=== PATIENT | female | born 1945 | race Caucasian/White ===

== ENCOUNTER 2017-07-24 12:58 | Inpatient (IN) | payer MEDICARE, BC, MEDICAID, SELFPAY ==
[2017-07-24] VITALS (11 sets, daily range): BP systolic 141–181; BP diastolic 49–94; PULSE 54–76; RESP 16–20; TEMP 37.1–37.4; O2SAT 93–99; BMI 62.0; BMI 62.1; BMI 56.8
--- NOTE | 2017-07-24 13:13 | ED.RN ---
PT HAS SEVERE EDEMA TO BODY, ONLY PITTING EDEMA TO BILAT HANDS.
--- NOTE | 2017-07-24 13:35 | EKG12_ITS ---
Test Reason : SOB Blood Pressure : / mmHG Vent. Rate : 055 BPM Atrial Rate : 055 BPM P-R Int : 182 ms QRS Dur : 088 ms QT Int : 442 ms P-R-T Axes : 066 014 092 degrees QTc Int : 422 ms Sinus bradycardia Left ventricular hypertrophy with repolarization abnormality Abnormal ECG Confirmed by FERNANDO TORRES, SAI ([id number]), news editor RENATA LAROSE ([id number]) on 07/29/2017 2:01:52 PM Referred By: LIYAH Confirmed By:SAI KING MD
--- NOTE | 2017-07-24 13:35 | RAD_ITS ---
STUDY: X-RAY CHEST REASON FOR EXAM: Female, 72 years old. Shortness of breath. TECHNIQUE: Single AP portable view of the chest. COMPARISON: Comparison is made with prior study dated August 24, 2016. FINDINGS: EKG electrodes are seen. Findings suggestive of mild degree of vascular congestion and CHF. Stable linear atelectasis and/or scarring at the left lung base. There is no demonstrated pleural abnormality. There is mild cardiac enlargement. Normal mediastinum and aris. Normal visualized pulmonary arteries. Normal visualized aortic arch and descending thoracic aorta. Normal visualized thoracic spine. Normal visualized ribs, clavicles, and shoulders. There is no demonstrated abnormality of the visualized soft tissue structures of the upper abdomen. RAD/Chest 1 View (Portable) IMPRESSION: Findings in keeping with mild degree of CHF with left basilar atelectasis. Electronically Signed: Gamaliel Starkey MD at 14:40 EST Tel [phone], Service support ,
[2017-07-24 14:21] LABS: Absolute Lymphocyte Count 0.84 X10^3/ul (0.83-4.51); Absolute Neutrophil Count 5.6 X10^3/uL (2.0-7.7); Basophil# 0.01 X10^3/uL; Basophil% 0.1 % (0-1); Eosinophil# 0.22 X10^3/uL; Eosinophils% 3.2 % (0-5); Hematocrit 29.2 % (37-47); Hemoglobin 8.6 g/dl (12.0-15.0); Lymphocyte # 0.84 X10^3/ul (4.0); Mean Corp Hgb Conc 29.5 g/gl (32-36); Mean Corpuscular Hgb 29.3 pg (27.0-32.0); Mean Corpuscular Volume 99.3 fL (81-99); Mean Platelet Vol. 9.7 fl (6.2-12.0); Monocyte# 0.29 X10^3/uL; Monocyte% 4.2 % (0-10); Neutrophil # 5.61 X10^3/uL (2.7-7.7); Neutrophil % 80.4 % (47-70); POSITIVE COUNT NO; POSITIVE DIFFERENTIAL NO; POSITIVE MORPHOLOGY NO; Platelet Count 169 K/mm3 (150-450); RBC Distribution Width CV 15.1 % (11.6-14.6); RBC Distribution Width SD 54.9 fl (35.1-43.9); Red Blood Count 2.94 M/mm3 (4.2-5.4)
[2017-07-24 14:46] LABS: Anion Gap 4 (5-15); BUN 60 mg/dL (7-18); BUN/Creat Ratio 43.8 RATIO (10-20); Calcium,Total 8.7 mg/dL (8.5-10.1); Chloride 100 mmol/L (98-107); Creatinine, Serum 1.37 mg/dL (0.55-1.02); EST Glomerular Filtration Rate 40 mL/min (>60); Est Glom Filt Rate - Afr Amer 48 mL/min (>60); Estimated Creatinine Clearance 31.11 ml/min; Glucose 160 mg/dL (74-106); Potassium 4.6 mmol/L (3.5-5.1); Sodium Level 141 mmol/L (136-145)
[2017-07-24 14:55] LABS: BNP,B-Type NATRIURETIC PEPTIDE 79.8 pg/mL (0-100)
--- NOTE | 2017-07-24 16:15 | ED.DCSUM_ITS ---
- ER Visit Summary Date of Service: 07/24/17 Chief Complaint: Shortness of breath and swelling History of Present Illness: The patient is a 72 F sent in from [facility] with chronic shortness of breath, on home oxygen. She is noted increased swelling to her extremities. They have been trying to increase her Lasix but there is concern for worsening renal function. Patient does have chronic renal insufficiency and follows with Dr. Ingram. Physical Examination: Vital signs are unremarkable. Patient sitting upright in bed no acute distress. Head and neck examination is unremarkable. Heart is regular rate and rhythm. Lung sounds are diminished at the bases. Abdomen is soft, obese, nontender. Extremity examination reveals 3-4+ edema in the arms and legs bilaterally. No open wounds are noted. Test Results: EKG is sinus bradycardia at 55 bpm with no sign of acute ischemia. CBC was normal white count with hemoglobin of 8.6. It appears that her baseline is closer to 10. Chemistry studies reveal a BUN of 16 and creatinine 1.37. BNP is normal. Emergency Department Course and Treatment: At this time patient has failed oral Lasix. She will be given a dose of IV Lasix and admitted for further treatment. Treatment Plan: [] Disposition: Admit Impression: Anasarca This note was generated with [employer] dictation software. It may contain incorrect words, spelling, and punctuation that were not noted in review of the chart prior to signing ED Disposition - Plan for ED Patient: Chief Complaint: Shortness of Breath Referrals: Antonio Peterson [Primary Care Provider] -
--- NOTE | 2017-07-24 16:56 | PCM.HP.STD ---
Problem List (1) Left ventricular hypertrophy Status: Chronic (2) Pulmonary hypertension Status: Chronic (3) First degree AV block Status: Chronic (4) Asthma Status: Chronic (5) History of gastroesophageal reflux (GERD) Status: Chronic (6) Hyperlipidemia Status: Chronic (7) History of hypertension Status: Chronic (8) Diabetes mellitus, type 2 Status: Chronic (9) Morbid obesity Status: Chronic (10) Lymphedema of lower extremity Status: Chronic Qualifiers: (11) Depression Status: Chronic (12) Anemia Status: Chronic (13) Hypertension Status: Chronic Qualifiers: (14) Obstructive sleep apnea on CPAP Status: Chronic (15) Rheumatic fever Status: Chronic (16) Hiatal hernia Status: Chronic History of Present Illness Date of Admission: 07/24/17 Chief Complaint: Swelling of extremities The patient is a 72 year old F who presents from halfway facility due to increased swelling of upper and lower extremities. Patient states she has chronic shortness of breath with exertion and is not more short of breath than normal. She denies chest pain. She does not ambulate much at nursing facility and nursing staff uses [facility] to transfer her. Patient sees Dr. Ingram for chronic renal failure and Dr. Thompson for diastolic dysfunction, hypertension and chronic lower extremity edema. She has a history of lymphedema which is not thought to be related to her heart. Her most recent echo May 2012 showed an ejection fraction of 70%. Her past medical history includes pulmonary hypertension, asthma, GERD, hyperlipidemia, hypertension, type 2 diabetes mellitus, morbid obesity, chronic lymphedema of lower extremities, depression, chronic anemia, obstructive sleep apnea on CPAP, rheumatic fever, hiatal hernia, chronic hypoxic respiratory failure requiring 2 L continuous supplemental oxygen. Lasix regimen was attempted to be adjusted as outpatient, however patient did not notice improvement of swelling. Past Medical History Past Medical History (Chronic Problems): Chronic Problems (Last Reviewed 05/03/17 @ 11:59 by Naun Thompson MD) Left ventricular hypertrophy (Chronic) Pulmonary hypertension (Chronic) First degree AV block (Chronic) Asthma (Chronic) History of gastroesophageal reflux (GERD) (Chronic) Hyperlipidemia (Chronic) History of hypertension (Chronic) Diabetes mellitus, type 2 (Chronic) Morbid obesity (Chronic) Lymphedema of lower extremity (Chronic) Depression (Chronic) Anemia (Chronic) Hypertension (Chronic) Obstructive sleep apnea on CPAP (Chronic) Rheumatic fever (Chronic) Hiatal hernia (Chronic) Allergies azithromycin Allergy (Verified 05/03/17 11:35) Rash hydroxychloroquine sulfate [From Plaquenil] Allergy (Verified 05/03/17 11:35) Unknown Penicillins Allergy (Verified 05/03/17 11:35) Hives Home Medications: Ambulatory Orders Medication Instructions Recorded Losartan Potassium [Cozaar] 50 mg PO DAILY 02/16/13 Atorvastatin Calcium [Lipitor] 40 mg PO QHS 02/17/13 Albuterol IH (ProAir) [Proair Hfa] 2 puff INHALATION Q6H PRN PRN 08/09/13 Montelukast [Singulair] 10 mg PO DAILY 08/09/13 Docusate Sodium [Colace] 100 mg PO QHS 05/06/14 Duloxetine HCl 30 mg PO QHS 06/11/16 Fexofenadine HCl 180 mg PO DAILY 06/11/16 Insulin Aspart [Novolog Flexpen 34 units SC DINNER 06/11/16 ([facility])] Insulin Aspart [Novolog Flexpen 38 units SC LUNCH 06/11/16 ([facility])] Insulin Aspart [Novolog Flexpen] 30 units SC BREAKFAST 06/11/16 Lorazepam [Ativan] 1 mg PO QHS 06/11/16 Acetaminophen 650 mg PO Q4H PRN PRN 08/24/16 Aspirin [Aspirin, Baby] 81 mg PO DAILY 08/24/16 Esomeprazole Mag Trihydrate 20 mg PO BID 08/24/16 [Nexium] Lactobacillus Acidophilus 1 tab PO BID 08/24/16 [Acidophilus] Lorazepam [Ativan] 1 mg PO BID PRN PRN 08/24/16 cholecalciferol (vitamin D3) 2,000 2,000 unit PO DAILY cap 05/02/17 unit capsule fluticasone 500 mcg-salmeterol 50 1 inh INHALATION Q12H 05/02/17 mcg/dose blistr powdr for inhalation furosemide 80 mg tablet 80 mg PO BID tab 05/02/17 carvedilol 12.5 mg tablet 12.5 mg PO BID tab 05/03/17 ipratropium-albuterol 0.5 mg-3 3 ml INHALATION Q8H 05/03/17 mg(2.5 mg base)/3 mL nebulization soln Albuterol Aerosols [Ventolin 2.5 mg INHALATION BID 07/24/17 Aerosols] Ferrous Sulfate 325 mg PO BIDCM 07/24/17 Insulin Detemir [Levemir FlexPen] 75 units SC BID 07/24/17 Surgical History: hysterectomy, - - Bladder suspension, hernia repair Psychiatric History: No pertinent psych hx MAPPER History: No pertinent MAPPER history Lives: [facility] Smoking Status: Former smoker Alcohol: None Drugs: None - *Family History Maternal History Items: - - mother with cervical cancer, stomache cancer, breast cancer in distant relatives Paternal History Items: - - father and uncle had heart failure Sibling History Items: No pertinent history Review of Systems Constitutional: Reports: Weakness. Denies: Chills, Fever HEENT: Denies: Head Aches, Sinus Congestion, Sinus Drainage Cardiovascular: Reports: Edema. Denies: Chest Pain, Light Headedness, Palpitations, Syncope Respiratory: Reports: Shortness of breath upon exertion - Chronic. Denies: Cough, Shortness of breath at rest, Sputum production Gastrointestinal: Denies: Abdominal Pain, Constipation, Diarrhea, Nausea, Vomiting Genitourinary: Denies: Dysuria Musculoskeletal: Denies: Joint Pain, Joint Tenderness Skin: Denies: Rash, Wounds Neurological: Denies: Numbness, Tingling, Focal weakness Psychiatric: Denies: Anxiety, Depression, Homicidal Ideations, Suicidal Ideations Hematologic/ Lymphatic: Denies: Easy Bruising, Easy Bleeding VTE Information - Inpt Only VTE Present on Admission: No VTE Mechan Device Prophylaxis: None VTE Pharm Prophylaxis ordered?: Yes - Physical Exam General: Alert, Oriented x3, Cooperative, No apparent distress HEENT: Atraumatic, PERRLA, EOMI, Normocephalic Neck: Supple, No JVD, Negative Carotid Bruits Lungs: Clear to auscultation, Diminished Cardiovascular: Regular rate, Regular Rhythm, Normal S1, Normal S2, Murmur, - Abdomen: Bowel Sounds Present, Soft, Non Tender, Non-Distended, Obese Extremities: No clubbing, No cyanosis, Edema - +3 pitting edema bilateral upper and lower extremities. Skin: No rashes, No breakdown Musculoskeletal: No Tenderness to Palpation of Joints or Extremities Neurological: Cranial nerves II-XII grossly intact, Neuro grossly intact Psych/Mental Status: Normal Affect, Appropriate Vital Signs Temp Pulse Resp BP Pulse Ox 98.8 F 60 16 141/94 H 98 07/24/17 13:01 07/24/17 14:16 07/24/17 14:16 07/24/17 14:16 07/24/17 14:16 Assessment/Plan 1. Anasarca with underlying chronic lymphedema of lower extremities. Dr. Ingram consulted who recommends increasing Lasix. Begin IV Lasix 80 mg twice daily. Awais wraps bilateral lower extremities. Strict I&O. Daily weight. Obtain echo. Patient follows with Dr. Thompson who does not feel lower extremity swelling is cardiac related. PT/OT. Sodium and fluid restriction. 2. Chronic hypoxic respiratory failure-on continuous supplemental oxygen of 2 L nasal cannula. At baseline. Patient denies shortness of breath. Albuterol aerosols as needed for shortness of breath. 3. Pulmonary hypertension/obstructive sleep apnea-continue home CPAP. Patient is seen Dr. Guthrie in the past. Most recent sleep study was approximately 5 years ago. Recommend further outpatient follow-up. Repeat echocardiogram to assess pulmonary pressures. 4. Chronic kidney disease-creatinine appears to be at baseline. Monitor BMP. Dr. Ingram consulted. 5. Diastolic dysfunction-Her most recent echo May 2012 showed an ejection fraction of 70%. Repeat echocardiogram. 6. Chronic iron deficiency anemia-continue iron supplementation. Hemoglobin 8.6. Her hemoglobin has fluctuated in previous labs. Repeat iron studies/B12/Folate. 7. Hypertension-continue home regimen of losartan, carvedilol. Continue to monitor. 8. Hyperlipidemia-continue statin. 9. Type 2 diabetes [id number] before meals at bedtime. Continue home insulin regimen. Sliding scale insulin. 10. Morbid obesity-encouraged diet and lifestyle modifications. Nutrition consult. DVT prophylaxis-heparin subcu. This patient was seen by MANUEL Lewis under the supervision of Dr. Lamb.
[2017-07-24] MEDS: Furosemide 100 MG/10 ML Vial 80 MG IV ×2 (16:59→20:01)
--- NOTE | 2017-07-24 17:07 | HP.PCM_ITS ---
Problem List (1) Left ventricular hypertrophy Status: Chronic (2) Pulmonary hypertension Status: Chronic (3) First degree AV block Status: Chronic (4) Asthma Status: Chronic (5) History of gastroesophageal reflux (GERD) Status: Chronic (6) Hyperlipidemia Status: Chronic (7) History of hypertension Status: Chronic (8) Diabetes mellitus, type 2 Status: Chronic (9) Morbid obesity Status: Chronic (10) Lymphedema of lower extremity Status: Chronic Qualifiers: (11) Depression Status: Chronic (12) Anemia Status: Chronic (13) Hypertension Status: Chronic Qualifiers: (14) Obstructive sleep apnea on CPAP Status: Chronic (15) Rheumatic fever Status: Chronic (16) Hiatal hernia Status: Chronic History of Present Illness Date of Admission: 07/24/17 Chief Complaint: Swelling of extremities The patient is a 72 year old F who presents from alf facility due to increased swelling of upper and lower extremities. Patient states she has chronic shortness of breath with exertion and is not more short of breath than normal. She denies chest pain. She does not ambulate much at nursing facility and nursing staff uses [facility] to transfer her. Patient sees Dr. Ingram for chronic renal failure and Dr. Thompson for diastolic dysfunction, hypertension and chronic lower extremity edema. She has a history of lymphedema which is not thought to be related to her heart. Her most recent echo May 2012 showed an ejection fraction of 70%. Her past medical history includes pulmonary hypertension, asthma, GERD, hyperlipidemia, hypertension, type 2 diabetes mellitus, morbid obesity, chronic lymphedema of lower extremities, depression, chronic anemia, obstructive sleep apnea on CPAP, rheumatic fever, hiatal hernia , chronic hypoxic respiratory failure requiring 2 L continuous supplemental oxygen. Lasix regimen was attempted to be adjusted as outpatient, however patient did not notice improvement of swelling. Past Medical History Past Medical History (Chronic Problems): Chronic Problems (Last Reviewed 05/03/17 @ 11:59 by Naun Thompson MD) Left ventricular hypertrophy (Chronic) Pulmonary hypertension (Chronic) First degree AV block (Chronic) Asthma (Chronic) History of gastroesophageal reflux (GERD) (Chronic) Hyperlipidemia (Chronic) History of hypertension (Chronic) Diabetes mellitus, type 2 (Chronic) Morbid obesity (Chronic) Lymphedema of lower extremity (Chronic) Depression (Chronic) Anemia (Chronic) Hypertension (Chronic) Obstructive sleep apnea on CPAP (Chronic) Rheumatic fever (Chronic) Hiatal hernia (Chronic) Allergies azithromycin Allergy (Verified 05/03/17 11:35) Rash hydroxychloroquine sulfate [From Plaquenil] Allergy (Verified 05/03/17 11:35) Unknown Penicillins Allergy (Verified 05/03/17 11:35) Hives Home Medications: Ambulatory Orders Medication Instructions Recorded Losartan Potassium [Cozaar] 50 mg PO DAILY 02/16/13 Atorvastatin Calcium [Lipitor] 40 mg PO QHS 02/17/13 Albuterol IH (ProAir) [Proair Hfa] 2 puff INHALATION Q6H PRN PRN 08/09/13 Montelukast [Singulair] 10 mg PO DAILY 08/09/13 Docusate Sodium [Colace] 100 mg PO QHS 05/06/14 Duloxetine HCl 30 mg PO QHS 06/11/16 Fexofenadine HCl 180 mg PO DAILY 06/11/16 Insulin Aspart [Novolog Flexpen 34 units SC DINNER 06/11/16 ([facility])] Insulin Aspart [Novolog Flexpen 38 units SC LUNCH 06/11/16 ([facility])] Insulin Aspart [Novolog Flexpen] 30 units SC BREAKFAST 06/11/16 Lorazepam [Ativan] 1 mg PO QHS 06/11/16 Acetaminophen 650 mg PO Q4H PRN PRN 08/24/16 Aspirin [Aspirin, Baby] 81 mg PO DAILY 08/24/16 Esomeprazole Mag Trihydrate 20 mg PO BID 08/24/16 [Nexium] Lactobacillus Acidophilus 1 tab PO BID 08/24/16 [Acidophilus] Lorazepam [Ativan] 1 mg PO BID PRN PRN 08/24/16 cholecalciferol (vitamin D3) 2,000 2,000 unit PO DAILY cap 05/02/17 unit capsule fluticasone 500 mcg-salmeterol 50 1 inh INHALATION Q12H 05/02/17 mcg/dose blistr powdr for inhalation furosemide 80 mg tablet 80 mg PO BID tab 05/02/17 carvedilol 12.5 mg tablet 12.5 mg PO BID tab 05/03/17 ipratropium-albuterol 0.5 mg-3 3 ml INHALATION Q8H 05/03/17 mg(2.5 mg base)/3 mL nebulization soln Albuterol Aerosols [Ventolin 2.5 mg INHALATION BID 07/24/17 Aerosols] Ferrous Sulfate 325 mg PO BIDCM 07/24/17 Insulin Detemir [Levemir FlexPen] 75 units SC BID 07/24/17 Surgical History: hysterectomy, - - Bladder suspension, hernia repair Psychiatric History: No pertinent psych hx 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 Denies: Chills, Fever HEENT: Denies: Head Aches, Sinus Congestion, Sinus Drainage Cardiovascular: Reports: Edema. Denies: Chest Pain, Light Headedness, Palpitations, Syncope Respiratory: Reports: Shortness of breath upon exertion - Chronic. Denies: Cough, Shortness of breath at rest, Sputum production Gastrointestinal: Denies: Abdominal Pain, Constipation, Diarrhea, Nausea, Vomiting Genitourinary: Denies: Dysuria Musculoskeletal: Denies: Joint Pain, Joint Tenderness Skin: Denies: Rash, Wounds Neurological: Denies: Numbness, Tingling, Focal weakness Psychiatric: Denies: Anxiety, Depression, Homicidal Ideations, Suicidal Ideations Hematologic/ Lymphatic: Denies: Easy Bruising, Easy Bleeding VTE Information - Inpt Only VTE Present on Admission: No VTE Mechan Device Prophylaxis: None VTE Pharm Prophylaxis ordered?: Yes - Physical Exam General: Alert, Oriented x3, Cooperative, No apparent distress HEENT: Atraumatic, PERRLA, EOMI, Normocephalic Neck: Supple, No JVD, Negative Carotid Bruits Lungs: Clear to auscultation, Diminished Cardiovascular: Regular rate, Regular Rhythm, Normal S1, Normal S2, Murmur, - Abdomen: Bowel Sounds Present, Soft, Non Tender, Non-Distended, Obese Extremities: No clubbing, No cyanosis, Edema - +3 pitting edema bilateral upper and lower extremities. Skin: No rashes, No breakdown Musculoskeletal: No Tenderness to Palpation of Joints or Extremities Neurological: Cranial nerves II-XII grossly intact, Neuro grossly intact Psych/Mental Status: Normal Affect, Appropriate Vital Signs Temp Pulse Resp BP Pulse Ox 98.8 F 60 16 141/94 H 98 07/24/17 13:01 07/24/17 14:16 07/24/17 14:16 07/24/17 14:16 07/24/17 14:16 Assessment/Plan 1. Anasarca with underlying chronic lymphedema of lower extremities. Dr. Ingram consulted who recommends increasing Lasix. Begin IV Lasix 80 mg twice daily. Awais wraps bilateral lower extremities. Strict I&O. Daily weight. Obtain echo. Patient follows with Dr. Thompson who does not feel lower extremity swelling is cardiac related. PT/OT. Sodium and fluid restriction. 2. Chronic hypoxic respiratory failure-on continuous supplemental oxygen of 2 L nasal cannula. At baseline. Patient denies shortness of breath. Albuterol aerosols as needed for shortness of breath. 3. Pulmonary hypertension/obstructive sleep apnea-continue home CPAP. Patient is seen Dr. Guthrie in the past. Most recent sleep study was approximately 5 years ago. Recommend further outpatient follow-up. Repeat echocardiogram to assess pulmonary pressures. 4. Chronic kidney disease-creatinine appears to be at baseline. Monitor BMP. Dr. Ingram consulted. 5. Diastolic dysfunction-Her most recent echo May 2012 showed an ejection fraction of 70%. Repeat echocardiogram. 6. Chronic iron deficiency anemia-continue iron supplementation. Hemoglobin 8.6. Her hemoglobin has fluctuated in previous labs. Repeat iron studies/B12/ Folate. 7. Hypertension-continue home regimen of losartan, carvedilol. Continue to monitor. 8. Hyperlipidemia-continue statin. 9. Type 2 diabetes [id number]-[id number] before meals at bedtime. Continue home insulin regimen. Sliding scale insulin. 10. Morbid obesity-encouraged diet and lifestyle modifications. Nutrition consult. DVT prophylaxis-heparin subcu. This patient was seen by MANUEL Lewis under the supervision of Dr. Lamb.
--- NOTE | 2017-07-24 17:09 | ED.RN ---
PT RECEIVED LASIX 40MG IVP AND C/O BURNING AT IV SITE, SITE WITHOUT REDNESS OR EDEMA. TAMMY SOFTWARE TEST AND VALIDATION ENGINEER, TELEPHONED AND INFORMED OF SAME AND WILL INFORM THE HOSPITALIST. THE REMAINED OF LASIX 40MG WAS NOT GIVEN.
[2017-07-24 17:49] LABS: Iron 37 ug/dL (50-170); Iron Binding Capacity,Total 296 ug/dL (250-450); PERCENT IRON SATURATION 12.5 % (15.0-55.0)
[2017-07-24 18:31] LABS: Bedside Glucose 106 mg/dL (70-110)
[2017-07-24] MEDS: Ferrous Sulfate 325 MG Tablet PO (18:38)
--- NOTE | 2017-07-24 19:00 | NURSING ---
Reviewed and agreed on all charting with Grupo Culeln RN
[2017-07-24] MEDS: Budesonide Respules 0.5 MG/2 ML AMPUL.NEB. INHALATION (19:10)
[2017-07-24] MEDS: Albuterol 2.5 MG/3 ML VIAL.NEB. INHALATION (19:10)
[2017-07-24] MEDS: 0.9% NaCl Peripheral Flush Adult/Peds IV (20:01)
[2017-07-24] MEDS: Heparin Injection 5,000 UNITS/ML Syringe 5000 UNITS SC (22:27)
[2017-07-24] MEDS: Carvedilol 12.5 MG Tablet PO (22:29)
[2017-07-24] MEDS: Docusate Sodium 100 MG Capsule PO (22:29)
[2017-07-24] MEDS: DULoxetine Hcl 30 MG Capsule PO (22:29)
[2017-07-24] MEDS: Pantoprazole Sodium 20 MG Tablet PO (22:29)
[2017-07-24] MEDS: Atorvastatin Calcium 40 MG Tablet PO (22:29)
[2017-07-24] MEDS: LORazepam 1 MG Tablet PO (22:34)
[2017-07-24 22:46] LABS: Bedside Glucose 170 mg/dL (70-110)
[2017-07-25] VITALS (13 sets, daily range): BP systolic 150–160; BP diastolic 53–77; PULSE 56–84; RESP 16–20; TEMP 37.1–37.2; O2SAT 93–95
[2017-07-25] MEDS: Acetaminophen 325 MG Tablet 650 MG PO (04:38)
[2017-07-25] MEDS: Heparin Injection 5,000 UNITS/ML Syringe 5000 UNITS SC ×3 (05:19→22:07)
--- NOTE | 2017-07-25 05:55 | ECHOD_ITS ---
Reason For Study: PHTN Procedure This was a 2D Doppler, Color Flow transthoracic echocardiogram. The exam was of poor technical quality due to body habitus. Exam performed portable in patient room. Left Ventricle Moderate concentric left ventricular hypertrophy. The estimated ejection fraction is 70 %. No regional wall motion abnormalities noted. Right Ventricle Mild hypertrophy of the right ventricle. Normal systolic function. Atria The left atrium is moderately enlarged. Normal right atrium. Normal atrial septum. Mitral Valve The mitral valve is structurally normal. No prolapse or stenosis seen. Tricuspid Valve Normal tricuspid valve. Trivial tricuspid valve insufficiency. Right ventricular systolic pressure estimated to be 23 mmHg. Aortic Valve Trisinus/trileaflet aortic valve. Moderate focal aortic valve thickening. Mild focal aortic valve calcification. Moderate restriction of the aortic valve. Moderate aortic stenosis. Peak aortic valve gradient 45 mmHg. Mean aortic valve gradient 23 mmHg. Calculated aortic valve area (continuity equation) is 1.5 cm2. Pulmonic Valve The pulmonic valve is not well visualized. Great Vessels Calcified aortic root. Normal arch. The inferior vena cava is dilated. No collapse of the inferior vena cava. Pericardium/Pleural No pericardial effusion. MMode/2D Measurements & Calculations LVIDd: 4.4 cm IVSd: 1.6 cm LVOT diam: 2.0 cm LVIDs: 2.3 cm LVPWd: 1.6 cm LVOT area: 3.0 cm2 FS: 48.8 % Ao root diam: 3.2 cm LAV(MOD-bp): 66.9 ml LVAd ap4: 41.0 cm2 LA dimension: 4.6 cm LAV(MOD-bp) Indexed: 26.9 ml/m2 EDV(MOD-sp4): 159.2 ml LAV(MOD-sp2): 78.2 ml EDV(sp4-el): 162.7 ml LAV(MOD-sp4): 56.3 ml LVAs ap4: 23.0 cm2 ESV(MOD-sp4): 60.7 ml ESV(sp4-el): 63.5 ml EF(MOD-sp4): 61.8 % EF(sp4-el): 61.0 % SV(MOD-sp4): 98.4 ml SV(sp4-el): 99.2 ml LA A4 area: 21.2 cm2 RA A4 area: 21.6 cm2 Doppler Measurements & Calculations MV E max cinthia: 68.0 cm/sec Ao V2 max: 333.6 cm/sec LV V1 max: 159.7 cm/sec MV A max cinthia: 84.6 cm/sec Ao max P.6 mmHg LV V1 max P.2 mmHg MV E/A: 0.80 Ao V2 mean: 227.6 cm/sec LV V1 mean P.0 mmHg Ao mean P.4 mmHg LV V1 mean: 102.5 cm/sec Ao V2 VTI: 72.9 cm LV V1 VTI: 39.0 cm ANGELITA(I,D): 1.6 cm2 ANGELITA(V,D): 1.5 cm2 SV(LVOT): 118.7 ml TR max cinthia: 209.8 cm/sec TR max P.6 mmHg Interpretation Summary Moderate concentric left ventricular hypertrophy. The estimated ejection fraction is 70 %. Mild hypertrophy of the right ventricle. The left atrium is moderately enlarged. Trivial tricuspid valve insufficiency. Right ventricular systolic pressure estimated to be 23 mmHg. Moderate aortic stenosis. Compared to echo report dated 12/27/2014, LV function has remained the same, but aortic stenosis has gone from mild to moderate. Ordering Physician: Khai Lamb Referring Physician: DARREN GAYTAN Performed By: America Martell, LESIA, RVT
[2017-07-25 06:05] LABS: Hematocrit 29.3 % (37-47); Hemoglobin 8.6 g/dl (12.0-15.0); Mean Corp Hgb Conc 29.4 g/gl (32-36); Mean Corpuscular Volume 98.7 fL (81-99); Mean Platelet Vol. 9.1 fl (6.2-12.0); Platelet Count 183 K/mm3 (150-450); RBC Distribution Width CV 15.2 % (11.6-14.6); RBC Distribution Width SD 54.5 fl (35.1-43.9); Red Blood Count 2.97 M/mm3 (4.2-5.4); White Blood Count 7.2 K/mm3 (4.4-11.0)
[2017-07-25 06:17] LABS: Anion Gap 6 (5-15); BUN 59 mg/dL (7-18); Calcium,Total 9.1 mg/dL (8.5-10.1); Chloride 97 mmol/L (98-107); Creatinine, Serum 1.44 mg/dL (0.55-1.02); EST Glomerular Filtration Rate 38 mL/min (>60); Est Glom Filt Rate - Afr Amer 46 mL/min (>60); Estimated Creatinine Clearance 30.84 ml/min; Glucose 57 mg/dL (74-106); Potassium 3.9 mmol/L (3.5-5.1); Sodium Level 142 mmol/L (136-145)
[2017-07-25 06:24] LABS: Scan Indicated on CBC? Y/N NO
[2017-07-25 07:01] LABS: Bedside Glucose 83 mg/dL (70-110)
[2017-07-25 07:01] LABS: Bedside Glucose 62 mg/dL (70-110)
[2017-07-25] MEDS: Albuterol 2.5 MG/3 ML VIAL.NEB. INHALATION ×3 (07:08→19:18)
[2017-07-25] MEDS: Budesonide Respules 0.5 MG/2 ML AMPUL.NEB. INHALATION ×2 (07:08→19:18)
--- NOTE | 2017-07-25 08:33 | PCM.CONS.R ---
Consultation - Renal 07/25/17 PCP/ Referring MD: Requesting physician: Khai Lamb Primary care physician: Antonio Peterson Reason for Consultation:: CKD stage 3 pt known to me - History of Present Illness History of Present Illness: [] 72 y/o f known to me with CKD Stage 3 due to diabetes, DM2, hypertension, chronic fluid retention with leg edema on diuretics, pulmonary hypertension/PRESTON on BIPAP, sedentary, super morbid obesity admitted from [facility] for worsening edema in her hands, arms. According to the patient, she only had 2# weight gain. She has a baseline creatinine of 1.3-1.4. Renal function is currently stable. CXR with mild CHF pattern but pt denied SOB, CP. Appetite has been good. Swelling in her legs are better than her baseline. She was given iv iron for iron def anemia. Hgb was 8.6g. - Allergies Allergies: Allergies azithromycin Allergy (Verified 05/03/17 11:35) Rash hydroxychloroquine sulfate [From Plaquenil] Allergy (Verified 05/03/17 11:35) Unknown Penicillins Allergy (Verified 05/03/17 11:35) Hives - Current Medications Current Medications: Current Medications Acetaminophen (Tylenol) 650 mg PO Q4H PRN PRN PRN Reason: PAIN Last Admin: 07/25/17 04:38 Dose: 650 mg Albuterol Sulfate (Ventolin Aerosols) 2.5 mg INHALATION Q6HWA.RT SUZE Last Admin: 07/25/17 07:08 Dose: 2.5 mg Albuterol/Ipratropium (Duoneb) 3 ml INHALATION Q6H PRN PRN PRN Reason: DYSPNEA Aspirin (Aspirin, Baby) 81 mg PO DAILYCM SUZE Atorvastatin Calcium (Lipitor) 40 mg PO QHS SUZE Last Admin: 07/24/17 22:29 Dose: 40 mg Budesonide (Pulmicort Aerosol) 0.5 mg INHALATION BID.RT SUZE Last Admin: 07/25/17 07:08 Dose: 0.5 mg Carvedilol (Coreg) 12.5 mg PO BID SUZE Last Admin: 07/24/17 22:29 Dose: 12.5 mg Cholecalciferol (Vitamin D) 2,000 unit PO DAILY SUZE Dextrose (D50w Syringe) 0 gm IV X1 PRN; Protocol PRN Reason: Hypoglycemia Docusate Sodium (Colace) 100 mg PO QHS SUZE Last Admin: 07/24/17 22:29 Dose: 100 mg Duloxetine HCl (Cymbalta) 30 mg PO QHS [facility] Last Admin: 07/24/17 22:29 Dose: 30 mg Ferrous Sulfate (Ferrous Sulfate) 325 mg PO BIDCM [facility] Last Admin: 07/24/17 18:38 Dose: 325 mg Furosemide (Lasix) 80 mg IV BID@1000,1800 [facility] Last Admin: 07/24/17 20:01 Dose: 80 mg Glucagon () 1 mg IM .X1 PRN PRN Reason: Hypoglycemia Heparin Sodium (Porcine) () 5,000 units SC Q8 [facility] Last Admin: 07/25/17 05:19 Dose: 5,000 units Insulin Aspart (Novolog Flexpen (Bkc)) 30 units SC BREAKFAST SUZE Insulin Aspart (Novolog Flexpen (Bkc)) 34 units SC DINNER [facility] Last Admin: 07/24/17 18:37 Dose: 34 u Insulin Aspart (Novolog Flexpen (Bkc)) 38 units SC LUNCH SUZE Insulin Aspart (Novolog Flexpen (Bkc)) 0 units SC ACHS [facility] PRN Reason: Protocol Last Admin: 07/25/17 07:32 Dose: Not Given Insulin Detemir (Levemir (Bkc)) 75 units SC BID [facility] Last Admin: 07/24/17 22:26 Dose: 75 units Lorazepam (Ativan) 1 mg PO BID PRN PRN PRN Reason: ANXIETY Lorazepam (Ativan) 1 mg PO QHS [facility] Last Admin: 07/24/17 22:34 Dose: 1 mg Losartan Potassium (Cozaar) 50 mg PO DAILY [facility] Pantoprazole Sodium (Protonix) 20 mg PO BID [facility] Last Admin: 07/24/17 22:29 Dose: 20 mg Sodium Chloride () 5 - 30 ml IV UD PRN PRN Reason: SALINE FLUSH Last Admin: 07/24/17 20:01 Dose: 10 ml - Past Medical History Past Medical History (Chronic Problems): Chronic Problems (Last Reviewed 05/03/17 @ 11:59 by Naun Thompson MD) Left ventricular hypertrophy (Chronic) Pulmonary hypertension (Chronic) First degree AV block (Chronic) Asthma (Chronic) History of gastroesophageal reflux (GERD) (Chronic) Hyperlipidemia (Chronic) History of hypertension (Chronic) Diabetes mellitus, type 2 (Chronic) Morbid obesity (Chronic) Lymphedema of lower extremity (Chronic) Depression (Chronic) Anemia (Chronic) Hypertension (Chronic) Obstructive sleep apnea on CPAP (Chronic) Rheumatic fever (Chronic) Hiatal hernia (Chronic) - Past Surgical History Surgical History: hysterectomy, - - Bladder suspension, hernia repair - Social History Smoking Status: Former smoker Alcohol: None Drugs: None - Family History Maternal Family History: Family History (Last Reviewed 05/03/17 @ 11:59 by Naun Thompson MD) Father CVA (cerebral vascular accident) Hypertension Sister Diabetes History Items: - - mother with cervical cancer, stomach cancer, breast cancer in distant relatives Paternal Family History: Family History (Last Reviewed 05/03/17 @ 11:59 by Naun Thompson MD) Father CVA (cerebral vascular accident) Hypertension Sister Diabetes History Items: - - father and uncle had heart failure Sibling Family History: Family History (Last Reviewed 05/03/17 @ 11:59 by Naun Thompson MD) Father CVA (cerebral vascular accident) Hypertension Sister Diabetes History Items: No pertinent history Review of Systems Constitutional: Reports: Weakness - chronic. Denies: Anorexia, Chills, Fever Eyes: Denies: Blurred vision HEENT: Denies: Head Aches Cardiovascular: Reports: Edema - hands, arms, chronic leg edema at baseline. Denies: Chest Pain Gastrointestinal: Reports: Constipation. Denies: Abdominal Pain, Diarrhea, Nausea, Vomiting Genitourinary: Denies: Dysuria Musculoskeletal: Reports: - - leg, arm swelling Skin: Denies: Rash Neurological: Denies: Tremor, Seizures Psychiatric: Reports: Depression Hematologic/ Lymphatic: Reports: Anemia. Denies: Hx of blood clot - Physical Exam General: Alert, Oriented x3, Cooperative, No apparent distress HEENT: PERRLA, EOMI Oral: Dry Mucosa Neck: Supple Lungs: Clear to auscultation, Diminished Cardiovascular: Regular rate Abdomen: Bowel Sounds Present, Soft, Non Tender, Non-Distended, Obese Extremities: Edema - chronic Skin: No rashes Neurological: Cranial nerves II-XII grossly intact, - - generalized weakness Psych/Mental Status: Normal Affect, Appropriate, Alert and oriented to time, place, person, mood and affect Vital Signs Temp Pulse Resp BP Pulse Ox 98.9 F 64 16 160/53 H 94 07/25/17 04:27 07/25/17 07:08 07/25/17 07:08 07/25/17 04:27 07/25/17 07:08 Oxygen Flow Rate (L/min) 2 Oxygen Delivery Method Room Air Weight: 152.2 kg Body Mass Index (BMI) 56.8 Intake and Output for Last 24 Hours 07/23/17 07/24/17 07/25/17 23:59 23:59 23:59 Intake Total 340 / 340 120 / 120 Output Total 1974 / 1974 1025 / 1025 Balance -1635 / -1635 -905 / -905 Laboratory Tests Past 24 Hrs 07/25/17 07/25/17 05:35 05:35 WBC 7.2 RBC 2.97 L Hgb 8.6 L Hct 29.3 L MCV 98.7 MCH 29.0 MCHC 29.4 L RDW 15.2 H RDW Differential 54.5 H Plt Count 183 MPV 9.1 Sodium 142 Potassium 3.9 Chloride 97 L Carbon Dioxide 39.0 H Anion Gap 6 BUN 59 H Creatinine 1.44 H Estim Creat Clear Calc 30.84 Est GFR (MDRD) Af Amer 46 L Est GFR (MDRD) Non-Af 38 L BUN/Creatinine Ratio 41.0 H Glucose 57 L Calcium 9.1 POC Glucose 07/25/17 07/25/17 07/24/17 06:56 06:35 22:18 POC Glucose 83 62 L 170 H 07/24/17 18:15 POC Glucose 106 Clinical Impression(s) from Imaging Studies Chest X-Ray 07/24/17 13:35 IMPRESSION: Findings in keeping with mild degree of CHF with left basilar atelectasis. Electronically Signed: Gamaliel Starkey MD at 14:40 EST Tel [phone], Service support , Assessment/Plan 1. CKD stage 3B with renal function at baseline. Creatinine 1.3-1.4. Check 24h urine for CRCL, TP while in the hospital. 2. Anasarca, fluid retention chronic due to pulmonary hypertension, PRESTON. Continue with lasix 80mg twice a day on discharge back to [facility]CF. Edema at her baseline. Will need to follow low sodium diet. 3. Iron def anemia. IV iron given. Continue oral iron on discharge. 4. DM2 stable 5. HTN stable 6. Super morbid obesity 7. PRESTON on BIPAP 8. Bradycardia, asymptomatic not on offending agents. spoke with pt dtr over phone and primary service
--- NOTE | 2017-07-25 08:44 | CON.PCM_ITS ---
Consultation - Renal 07/25/17 PCP/ Referring MD: Requesting physician: Khai Lamb Primary care physician: Antonio Peterson Reason for Consultation:: CKD stage 3 pt known to me - History of Present Illness History of Present Illness: [] 72 y/o f known to me with CKD Stage 3 due to diabetes, DM2, hypertension, chronic fluid retention with leg edema on diuretics, pulmonary hypertension/PRESTON on BIPAP, sedentary, super morbid obesity admitted from [facility] for worsening edema in her hands, arms. According to the patient, she only had 2# weight gain. She has a baseline creatinine of 1.3-1.4. Renal function is currently stable. CXR with mild CHF pattern but pt denied SOB, CP. Appetite has been good. Swelling in her legs are better than her baseline. She was given iv iron for iron def anemia. Hgb was 8.6g. - Allergies Allergies: Allergies azithromycin Allergy (Verified 05/03/17 11:35) Rash hydroxychloroquine sulfate [From Plaquenil] Allergy (Verified 05/03/17 11:35) Unknown Penicillins Allergy (Verified 05/03/17 11:35) Hives - Current Medications Current Medications: Current Medications Acetaminophen (Tylenol) 650 mg PO Q4H PRN PRN PRN Reason: PAIN Last Admin: 07/25/17 04:38 Dose: 650 mg Albuterol Sulfate (Ventolin Aerosols) 2.5 mg INHALATION Q6HWA.RT SUZE Last Admin: 07/25/17 07:08 Dose: 2.5 mg Albuterol/Ipratropium (Duoneb) 3 ml INHALATION Q6H PRN PRN PRN Reason: DYSPNEA Aspirin (Aspirin, Baby) 81 mg PO DAILYCM SUZE Atorvastatin Calcium (Lipitor) 40 mg PO QHS SUZE Last Admin: 07/24/17 22:29 Dose: 40 mg Budesonide (Pulmicort Aerosol) 0.5 mg INHALATION BID.RT SUZE Last Admin: 07/25/17 07:08 Dose: 0.5 mg Carvedilol (Coreg) 12.5 mg PO BID SUZE Last Admin: 07/24/17 22:29 Dose: 12.5 mg Cholecalciferol (Vitamin D) 2,000 unit PO DAILY SUZE Dextrose (D50w Syringe) 0 gm IV X1 PRN; Protocol PRN Reason: Hypoglycemia Docusate Sodium (Colace) 100 mg PO QHS SUZE Last Admin: 07/24/17 22:29 Dose: 100 mg Duloxetine HCl (Cymbalta) 30 mg PO QHS [facility] Last Admin: 07/24/17 22:29 Dose: 30 mg Ferrous Sulfate (Ferrous Sulfate) 325 mg PO BIDCM [facility] Last Admin: 07/24/17 18:38 Dose: 325 mg Furosemide (Lasix) 80 mg IV BID@1000,1800 [facility] Last Admin: 07/24/17 20:01 Dose: 80 mg Glucagon () 1 mg IM .X1 PRN PRN Reason: Hypoglycemia Heparin Sodium (Porcine) () 5,000 units SC Q8 [facility] Last Admin: 07/25/17 05:19 Dose: 5,000 units Insulin Aspart (Novolog Flexpen (Bkc)) 30 units SC BREAKFAST SUZE Insulin Aspart (Novolog Flexpen (Bkc)) 34 units SC DINNER [facility] Last Admin: 07/24/17 18:37 Dose: 34 u Insulin Aspart (Novolog Flexpen (Bkc)) 38 units SC LUNCH SUZE Insulin Aspart (Novolog Flexpen (Bkc)) 0 units SC ACHS [facility] PRN Reason: Protocol Last Admin: 07/25/17 07:32 Dose: Not Given Insulin Detemir (Levemir (Bkc)) 75 units SC BID [facility] Last Admin: 07/24/17 22:26 Dose: 75 units Lorazepam (Ativan) 1 mg PO BID PRN PRN PRN Reason: ANXIETY Lorazepam (Ativan) 1 mg PO QHS [facility] Last Admin: 07/24/17 22:34 Dose: 1 mg Losartan Potassium (Cozaar) 50 mg PO DAILY [facility] Pantoprazole Sodium (Protonix) 20 mg PO BID [facility] Last Admin: 07/24/17 22:29 Dose: 20 mg Sodium Chloride () 5 - 30 ml IV UD PRN PRN Reason: SALINE FLUSH Last Admin: 07/24/17 20:01 Dose: 10 ml - Past Medical History Past Medical History (Chronic Problems): Chronic Problems (Last Reviewed 05/03/17 @ 11:59 by Naun Thompson MD) Left ventricular hypertrophy (Chronic) Pulmonary hypertension (Chronic) First degree AV block (Chronic) Asthma (Chronic) History of gastroesophageal reflux (GERD) (Chronic) Hyperlipidemia (Chronic) History of hypertension (Chronic) Diabetes mellitus, type 2 (Chronic) Morbid obesity (Chronic) Lymphedema of lower extremity (Chronic) Depression (Chronic) Anemia (Chronic) Hypertension (Chronic) Obstructive sleep apnea on CPAP (Chronic) Rheumatic fever (Chronic) Hiatal hernia (Chronic) - Past Surgical History Surgical History: hysterectomy, - - Bladder suspension, hernia repair - Social History Smoking Status: Former smoker Alcohol: None Drugs: None - Family History Maternal Family History: Family History (Last Reviewed 05/03/17 @ 11:59 by Naun Thompson MD) Father CVA (cerebral vascular accident) Hypertension Sister Diabetes History Items: - - mother with cervical cancer, stomach cancer, breast cancer in distant relatives Paternal Family History: Family History (Last Reviewed 05/03/17 @ 11:59 by Naun Thompson MD) Father CVA (cerebral vascular accident) Hypertension Sister Diabetes History Items: - - father and uncle had heart failure Sibling Family History: Family History (Last Reviewed 05/03/17 @ 11:59 by Naun Thompson MD) Father CVA (cerebral vascular accident) Hypertension Sister Diabetes History Items: No pertinent history Review of Systems Constitutional: Reports: Weakness - chronic. Denies: Anorexia, Chills, Fever Eyes: Denies: Blurred vision HEENT: Denies: Head Aches Cardiovascular: Reports: Edema - hands, arms, chronic leg edema at baseline. Denies: Chest Pain Gastrointestinal: Reports: Constipation. Denies: Abdominal Pain, Diarrhea, Nausea, Vomiting Genitourinary: Denies: Dysuria Musculoskeletal: Reports: - - leg, arm swelling Skin: Denies: Rash Neurological: Denies: Tremor, Seizures Psychiatric: Reports: Depression Hematologic/ Lymphatic: Reports: Anemia. Denies: Hx of blood clot - Physical Exam General: Alert, Oriented x3, Cooperative, No apparent distress HEENT: PERRLA, EOMI Oral: Dry Mucosa Neck: Supple Lungs: Clear to auscultation, Diminished Cardiovascular: Regular rate Abdomen: Bowel Sounds Present, Soft, Non Tender, Non-Distended, Obese Extremities: Edema - chronic Skin: No rashes Neurological: Cranial nerves II-XII grossly intact, - - generalized weakness Psych/Mental Status: Normal Affect, Appropriate, Alert and oriented to time, place, person, mood and affect Vital Signs Temp Pulse Resp BP Pulse Ox 98.9 F 64 16 160/53 H 94 07/25/17 04:27 07/25/17 07:08 07/25/17 07:08 07/25/17 04:27 07/25/17 07:08 Oxygen Flow Rate (L/min) 2 Oxygen Delivery Method Room Air Weight: 152.2 kg Body Mass Index (BMI) 56.8 Intake and Output for Last 24 Hours 07/23/17 07/24/17 07/25/17 23:59 23:59 23:59 Intake Total 340 / 340 120 / 120 Output Total 1974 / 1974 1025 / 1025 Balance -1635 / -1635 -905 / -905 Laboratory Tests Past 24 Hrs 07/25/17 07/25/17 05:35 05:35 WBC 7.2 RBC 2.97 L Hgb 8.6 L Hct 29.3 L MCV 98.7 MCH 29.0 MCHC 29.4 L RDW 15.2 H RDW Differential 54.5 H Plt Count 183 MPV 9.1 Sodium 142 Potassium 3.9 Chloride 97 L Carbon Dioxide 39.0 H Anion Gap 6 BUN 59 H Creatinine 1.44 H Estim Creat Clear Calc 30.84 Est GFR (MDRD) Af Amer 46 L Est GFR (MDRD) Non-Af 38 L BUN/Creatinine Ratio 41.0 H Glucose 57 L Calcium 9.1 POC Glucose 07/25/17 07/25/17 07/24/17 06:56 06:35 22:18 POC Glucose 83 62 L 170 H 07/24/17 18:15 POC Glucose 106 Clinical Impression(s) from Imaging Studies Chest X-Ray 07/24/17 13:35 IMPRESSION: Findings in keeping with mild degree of CHF with left basilar atelectasis. Electronically Signed: Gamaliel Starkey MD at 14:40 EST Tel [phone], Service support , Assessment/Plan 1. CKD stage 3B with renal function at baseline. Creatinine 1.3-1.4. Check 24h urine for CRCL, TP while in the hospital. 2. Anasarca, fluid retention chronic due to pulmonary hypertension, PRESTON. Continue with lasix 80mg twice a day on discharge back to ECF. Edema at her baseline. Will need to follow low sodium diet. 3. Iron def anemia. IV iron given. Continue oral iron on discharge. 4. DM2 stable 5. HTN stable 6. Super morbid obesity 7. PRESTON on BIPAP 8. Bradycardia, asymptomatic not on offending agents. spoke with pt dtr over phone and primary service
--- NOTE | 2017-07-25 09:12 | CASEMGMT ---
Patient is from [facility]. MARY KAY faxed updates to [facility]. SW to follow for d/c back to [facility]. 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
[2017-07-25] MEDS: Carvedilol 12.5 MG Tablet PO ×2 (10:12→22:06)
[2017-07-25] MEDS: Losartan Potassium 50 MG Tablet PO (10:12)
[2017-07-25] MEDS: Pantoprazole Sodium 20 MG Tablet PO ×2 (10:12→22:07)
[2017-07-25] MEDS: Aspirin 81 MG TAB.CHEW PO (10:13)
[2017-07-25] MEDS: Furosemide 100 MG/10 ML Vial 80 MG IV ×2 (10:13→17:21)
[2017-07-25] MEDS: Iron Polysaccharide Complex 150 MG CAPSULE PO (10:16)
[2017-07-25 11:46] LABS: Bedside Glucose 203 mg/dL (70-110)
--- NOTE | 2017-07-25 14:17 | CASEMGMT ---
MARY KAY called [facility] and let Marciano know patient will likely be discharged tomorrow. She thanked MARY KAY for the update. Plan: return to [facility] under intermediate level of care. Kristina FALK MSW
--- NOTE | 2017-07-25 14:42 | PN_ITS ---
<Derik Ford - Last Filed: 07/25/17 14:32> Subjective: Pt resting comfortably in bed on 2lpm O2, complaining of mild dyspnea today. She has a yung cath in place, does not chronically have one in place, denies discomfort, fevers chills. Will void attempt tomorrow. Discussed with Dr. Ingram who does not feel the pt is significantly more edematous than usual presentation. Pt tolerated CPAP overnight. - Physical Exam General: Alert, Oriented x3, Cooperative HEENT: Atraumatic, PERRLA, EOMI, Normocephalic Neck: Supple, No JVD, Negative Carotid Bruits Lungs: Clear to auscultation, Diminished Cardiovascular: Regular rate, No murmurs Abdomen: Bowel Sounds Present, Soft, Non Tender Extremities: No edema, Capillary Refill Less than 3 Seconds Skin: No rashes, No breakdown Musculoskeletal: No Tenderness to Palpation of Joints or Extremities Neurological: Cranial nerves II-XII grossly intact Psych/Mental Status: Normal Affect, Appropriate, Alert and oriented to time, place, person, mood and affect Vital Signs Temp Pulse Resp BP Pulse Ox 98.9 F 84 16 150/72 H 95 07/25/17 10:05 07/25/17 13:12 07/25/17 13:12 07/25/17 10:05 07/25/17 10:05 Oxygen Flow Rate (L/min) 2 Oxygen Delivery Method Nasal Cannula Weight: 152.2 kg Body Mass Index (BMI) 56.8 Intake and Output for Last 24 Hours 07/23/17 07/24/17 07/25/17 23:59 23:59 23:59 Intake Total 340 / 340 600 / 600 Output Total 1974 / 1974 2325 / 2325 Balance -1635 / -1635 -1725 / -1725 Laboratory Tests Past 24 Hrs 07/25/17 07/25/17 07/25/17 05:35 05:35 05:35 WBC 7.2 RBC 2.97 L Hgb 8.6 L Hct 29.3 L MCV 98.7 MCH 29.0 MCHC 29.4 L RDW 15.2 H RDW Differential 54.5 H Plt Count 183 MPV 9.1 Sodium 142 Potassium 3.9 Chloride 97 L Carbon Dioxide 39.0 H Anion Gap 6 BUN 59 H Creatinine 1.44 H Estim Creat Clear Calc 30.84 Est GFR (MDRD) Af Amer 46 L Est GFR (MDRD) Non-Af 38 L BUN/Creatinine Ratio 41.0 H Glucose 57 L Calcium 9.1 Vitamin B12 Pending Folate 07/25/17 05:35 WBC RBC Hgb Hct MCV MCH MCHC RDW RDW Differential Plt Count MPV Sodium Potassium Chloride Carbon Dioxide Anion Gap BUN Creatinine Estim Creat Clear Calc Est GFR (MDRD) Af Amer Est GFR (MDRD) Non-Af BUN/Creatinine Ratio Glucose Calcium Vitamin B12 Folate 19.70 POC Glucose 07/25/17 07/25/17 07/25/17 11:36 06:56 06:35 POC Glucose 203 H 83 62 L 07/24/17 07/24/17 22:18 18:15 POC Glucose 170 H 106 Assessment/Plan 1. Anasarca, lymphedema, complicated by diastolic heart failure - per nephrology pt at baseline. Will continue lasix, yung, and monitor I/O to see if her dyspnea improves. Echo EF 70%, moderate LVH, RVSP 23 mmHg, moderate aortic stenosis - increased from mild. 2. CKD stage III - Dr. Ingram following. Pt at baseline. 3. Pulmonary HTN - follow up with Dr. Prescott 4. Chronic hypoxic respiratory failure - at baseline. 5. PRESTON - CPAP qhs 6. Chronic iron def anemia - mildly macrocytic, replete iron, check b12/folate. s/p venofer x 1. 7. HTN - home meds, running on the high side, will continue to trend and adjust prior to DC if indicated. 8. HLD - on statin 9. T2DM - fluctuant, continue home regimen 10. Morbid obesity complicating the above - dietary/nutrition consult DVT ppx: heparin DC planning: return to SNF when stable. This patient was seen by Derik Ford PA-C under the supervision of Doctor Sims. <Aroldo Sims - Last Filed: 07/25/17 15:46> - Physical Exam General: Alert, Cooperative HEENT: Atraumatic, Normocephalic Lungs: Clear to auscultation, Diminished Cardiovascular: Regular rate, Regular Rhythm, Normal S1, Normal S2, No murmurs Abdomen: Bowel Sounds Present, Soft, Non Tender, Non-Distended Extremities: No Calf Tenderness, Edema Skin: No rashes, No breakdown Psych/Mental Status: Normal Affect, Appropriate Vital Signs Temp Pulse Resp BP Pulse Ox 37.2 C 56 L 16 150/72 H 95 07/25/17 10:05 07/25/17 15:31 07/25/17 13:12 07/25/17 10:05 07/25/17 10:05 Oxygen Flow Rate (L/min) 2 Oxygen Delivery Method Nasal Cannula Weight: 152.2 kg Body Mass Index (BMI) 56.8 Intake and Output for Last 24 Hours 07/23/17 07/24/17 07/25/17 23:59 23:59 23:59 Intake Total 340 / 340 600 / 600 Output Total 1974 / 1974 2325 / 2325 Balance -1635 / -1635 -1725 / -1725 Laboratory Tests Past 24 Hrs 07/25/17 07/25/17 07/25/17 05:35 05:35 05:35 WBC 7.2 RBC 2.97 L Hgb 8.6 L Hct 29.3 L MCV 98.7 MCH 29.0 MCHC 29.4 L RDW 15.2 H RDW Differential 54.5 H Plt Count 183 MPV 9.1 Sodium 142 Potassium 3.9 Chloride 97 L Carbon Dioxide 39.0 H Anion Gap 6 BUN 59 H Creatinine 1.44 H Estim Creat Clear Calc 30.84 Est GFR (MDRD) Af Amer 46 L Est GFR (MDRD) Non-Af 38 L BUN/Creatinine Ratio 41.0 H Glucose 57 L Calcium 9.1 Vitamin B12 Pending Folate 07/25/17 05:35 WBC RBC Hgb Hct MCV MCH MCHC RDW RDW Differential Plt Count MPV Sodium Potassium Chloride Carbon Dioxide Anion Gap BUN Creatinine Estim Creat Clear Calc Est GFR (MDRD) Af Amer Est GFR (MDRD) Non-Af BUN/Creatinine Ratio Glucose Calcium Vitamin B12 Folate 19.70 POC Glucose 07/25/17 07/25/17 07/25/17 11:36 06:56 06:35 POC Glucose 203 H 83 62 L 07/24/17 07/24/17 22:18 18:15 POC Glucose 170 H 106 Assessment/Plan Seen and examined independent. Agree with the above note by the physician assistant corporate secretary. 1. Anasarca: Patient appears to be pretty stable from from this aspect. Patient is currently having a 12 hour urine collection performed so patient will continue to be hospitalized until that is complete the collected. Once that is collected I feel the patient, barring any setback, could be discharged to resume her previous dosing of Lasix. Code Visit Inpatient E&M: 83232 Subs Hosp L2
--- NOTE | 2017-07-25 14:56 | CHAPLAIN ---
Type of Pastoral Visit _x__ Initial Visit ___ Follow-up Visit ___ On-call Visit ___ General Patient Visit ___ Spiritual Assessment ___ Family Conference ___ Bereavement ___ Rapid Response ___ Code Blue ___ Other (describe below) Pastoral Care Referral From _x__ Patient ___ Family ___ Nurse ___ Physician ___ Auto Refinisher ___ Biometrics Experimentalist ___ Other (describe below) Sacrament/Intervention _x__ Active listening ___ Anointing ___ Yazdanism ___ Bereavement ___ Communion ___ Rizwana exploration ___ _x__ Life review _x__ Prayer ___ Reconciliation ___ Sacrament of Sick ___ Supportive presence ___ Wedding ___ Other (describe below) Pastoral Comments
[2017-07-25 16:41] LABS: Bedside Glucose 46 mg/dL (70-110)
--- NOTE | 2017-07-25 18:31 | NURSING ---
Reviewed and agreed on all charting with Grupo Cullen RN
[2017-07-25] MEDS: Docusate Sodium 100 MG Capsule PO (22:06)
[2017-07-25] MEDS: LORazepam 1 MG Tablet PO (22:06)
[2017-07-25] MEDS: DULoxetine Hcl 30 MG Capsule PO (22:06)
[2017-07-25] MEDS: Atorvastatin Calcium 40 MG Tablet PO (22:07)
[2017-07-26] VITALS (9 sets, daily range): BP systolic 132–187; BP diastolic 47–130; PULSE 60–76; RESP 16–24; TEMP 37.1–37.5; O2SAT 93–94
--- NOTE | 2017-07-26 00:18 | NURSING ---
Pt reported to ASSEMBLER TESTER that she wanted her blood sugar checked. Pt reported feeling shakey and having a headache. RN checked sugar and it was 112. OJ, willis crackers, and peanut butter given. Pt denies needing pharmacological intervention for headache.
[2017-07-26 00:20] LABS: Bedside Glucose 112 mg/dL (70-110)
[2017-07-26 00:26] LABS: Bedside Glucose 76 mg/dL (70-110)
[2017-07-26 02:57] LABS: Bedside Glucose 122 mg/dL (70-110)
[2017-07-26] MEDS: Heparin Injection 5,000 UNITS/ML Syringe 5000 UNITS SC (05:16)
[2017-07-26 05:39] LABS: Hematocrit 29.6 % (37-47); Mean Corp Hgb Conc 30.4 g/gl (32-36); Mean Corpuscular Volume 98.7 fL (81-99); Mean Platelet Vol. 10.4 fl (6.2-12.0); Platelet Count 167 K/mm3 (150-450); RBC Distribution Width CV 14.9 % (11.6-14.6); RBC Distribution Width SD 51.4 fl (35.1-43.9); White Blood Count 7.2 K/mm3 (4.4-11.0)
[2017-07-26 05:47] LABS: Scan Indicated on CBC? Y/N NO
[2017-07-26 05:54] LABS: Albumin, Serum 2.8 g/dL (3.2-5.0); BUN 56 mg/dL (7-18); BUN/Creat Ratio 37.1 RATIO (10-20); Calcium,Total 9.2 mg/dL (8.5-10.1); Chloride 96 mmol/L (98-107); Creatinine, Serum 1.51 mg/dL (0.55-1.02); EST Glomerular Filtration Rate 36 mL/min (>60); Est Glom Filt Rate - Afr Amer 43 mL/min (>60); Estimated Creatinine Clearance 29.41 ml/min; Glucose 126 mg/dL (74-106); Phosphorus 3.7 mg/dL (2.5-4.9); Potassium 4.3 mmol/L (3.5-5.1); Sodium Level 141 mmol/L (136-145)
[2017-07-26] MEDS: Albuterol 2.5 MG/3 ML VIAL.NEB. INHALATION ×2 (06:53→13:13)
[2017-07-26] MEDS: Budesonide Respules 0.5 MG/2 ML AMPUL.NEB. INHALATION (06:53)
[2017-07-26 06:56] LABS: Bedside Glucose 148 mg/dL (70-110)
[2017-07-26 07:06] LABS: Bedside Glucose 89 mg/dL (70-110)
[2017-07-26 07:06] LABS: Bedside Glucose 53 mg/dL (70-110)
[2017-07-26 07:06] LABS: Bedside Glucose 61 mg/dL (70-110)
[2017-07-26] MEDS: Aspirin 81 MG TAB.CHEW PO (08:58)
[2017-07-26] MEDS: Iron Polysaccharide Complex 150 MG CAPSULE PO (08:58)
[2017-07-26 08:59] LABS: 24 Hour Urine Protein 632.1 mg/24HR (<150 MG/24HR); 24HR. UA Prot. Total Volume 4900 mL; Urine Protein (24 Hour) 12.9 mg/dL (<11.9)
[2017-07-26] MEDS: Carvedilol 12.5 MG Tablet PO (08:59)
[2017-07-26] MEDS: 0.9% NaCl Peripheral Flush Adult/Peds IV (08:59)
[2017-07-26] MEDS: Pantoprazole Sodium 20 MG Tablet PO (08:59)
[2017-07-26] MEDS: Losartan Potassium 50 MG Tablet PO (08:59)
[2017-07-26] MEDS: Furosemide 100 MG/10 ML Vial 80 MG IV (08:59)
[2017-07-26 09:03] LABS: Creat.Clear Total Volume 4900 mL; Creatinine Clearance 49 ml/min (100-200); Creatinine Serum Creat 1.5 mg/dL (0.6-1.0); Creatinine Urine 21.7 mg/dL (NO RANGE EST.); EST Glomerular Filtration Rate 36 mL/min (>60); Est Glom Filt Rate - Afr Amer 43 mL/min (>60)
[2017-07-26 09:50] LABS: Vitamin B12 884 pg/mL (211-911)
--- NOTE | 2017-07-26 10:57 | PCM.TXEXTCAR ---
- Diet 07/24/17 16:34 Diet: Cardiac: Calorie-Controlled Food consistency:: Regular Liquid Consistency:: Regular/Thin How many daily calories?: 1800 calorie 2000 mg sodium max daily. - Routine Orders/Code Status Suppository Type: Dulcolax 10mg Suppository Frequency: Daily PRN O2 Frequency: Continuous Routine Lab Work: CBC - 3 days, BMP - 3 days Code Status: Full Code - Therapies Physical Therapy: Eval and Treat Occupational Therapy: Eval and Treat - Problem/Diagnosis (1) Anasarca Status: Acute Current Visit: Yes (2) CHF (congestive heart failure) Status: Chronic Current Visit: Yes (3) Chronic respiratory failure with hypoxia Status: Chronic Current Visit: Yes (4) Anemia Status: Chronic Current Visit: No (5) Diabetes mellitus, type 2 Status: Chronic Current Visit: No (6) History of gastroesophageal reflux (GERD) Status: Chronic Current Visit: No (7) History of hypertension Status: Chronic Current Visit: No (8) Hyperlipidemia Status: Chronic Current Visit: No (9) Hypertension Status: Chronic Current Visit: No (10) Lymphedema of lower extremity Status: Chronic Current Visit: No (11) Morbid obesity Status: Chronic Current Visit: No (12) Obstructive sleep apnea on CPAP Status: Chronic Current Visit: No (13) Pulmonary hypertension Status: Chronic Current Visit: No (14) Debility Status: Chronic Current Visit: Yes (15) Aortic stenosis Status: Chronic Current Visit: Yes - Allergies/Procedures Done in Hospital Allergies/Adverse Reactions: Allergies azithromycin Allergy (Verified 05/03/17 11:35) Rash hydroxychloroquine sulfate [From Plaquenil] Allergy (Verified 05/03/17 11:35) Unknown Penicillins Allergy (Verified 05/03/17 11:35) Hives Procedures: 2-D Echocardiogram - Type of Care/Length of Stay Estimated LOS: Convalescent Care Less Than 30 days Type of Care Needed: Skilled Rehab Potential: Fair Prognosis: Fair - Additional Orders/Day of Discharge Day of Discharge: 07/26/17 - Dietary and Speech Recommendations Dietitian Recommendations/Changes: Suggest continue Cardiac, 1800 Calorie Controlled diet. Suggest check Hgb A1c level - Follow Up Care Primary Care Physician: Antonio Peterson [Primary Care Provider] - Please follow up with your Primary Care Physician in: 2 weeks Please Follow Up With: Juan Jose,Robyn, DO When: 2 weeks Please Follow Up With: Kofi Guthrie MD When: 2 weeks Please Follow Up With: Naun Thompson MD When: 2 weeks
[2017-07-26 11:45] LABS: Bedside Glucose 142 mg/dL (70-110)
--- NOTE | 2017-07-26 12:48 | PN.RENAL_ITS ---
Patient Problems: Active and Suspected Problems (Last Reviewed 05/03/17 @ 11:59 by Naun Thmopson MD ) Anasarca (Acute) Subjective: breathing stable, 24h urine showed CRCL 49cc/min with 632mg protein. will need to continue with lasix on discharge to [facility]. - Physical Exam General: Alert, Oriented x3, Cooperative, No apparent distress Lungs: Clear to auscultation, Diminished Cardiovascular: Regular rate, Murmur Abdomen: Bowel Sounds Present, Soft, Non Tender, Non-Distended, Obese Extremities: Edema - anasarca chronic Skin: No rashes Psych/Mental Status: Alert and oriented to time, place, person, mood and affect Vital Signs Temp Pulse Resp BP Pulse Ox 99.5 F H 67 19 H 135/47 H 94 07/26/17 08:55 07/26/17 11:06 07/26/17 08:55 07/26/17 11:36 07/26/17 08:55 Oxygen Flow Rate (L/min) 2 Oxygen Delivery Method Nasal Cannula Weight: 151.4 kg Body Mass Index (BMI) 56.8 Intake and Output for Last 24 Hours 07/24/17 07/25/17 07/26/17 23:59 23:59 23:59 Intake Total 340 / 340 1320 / 1320 240 / 240 Output Total 1974 / 1974 3665 / 3665 1730 / 1730 Balance -1635 / -1635 -2345 / -2345 -1490 / -1490 Microbiology Past 72 Hours 07/25/17 18:30 Stool Occult Blood ([facility]) - Final Stool Laboratory Tests Past 24 Hrs 07/25/17 07/26/17 07/26/17 05:35 05:20 05:20 WBC 7.2 RBC 3.00 L Hgb 9.0 L Hct 29.6 L MCV 98.7 MCH 30.0 MCHC 30.4 L RDW 14.9 H RDW Differential 51.4 H Plt Count 167 MPV 10.4 Sodium 141 Potassium 4.3 Chloride 96 L Carbon Dioxide 38.0 H BUN 56 H Creatinine 1.51 H Estim Creat Clear Calc 29.41 Est GFR (MDRD) Af Amer 43 L Est GFR (MDRD) Non-Af 36 L BUN/Creatinine Ratio 37.1 H Glucose 126 H Calcium 9.2 Phosphorus 3.7 Albumin 2.8 L Vitamin B12 884 Urine Collection Time Timed Urine Volume Urine Creatinine Creatinine Clearance Ur Total Protein 24 Hr Urine Total Protein 07/26/17 07/26/17 08:10 08:10 WBC RBC Hgb Hct MCV MCH MCHC RDW RDW Differential Plt Count MPV Sodium Potassium Chloride Carbon Dioxide BUN Creatinine 1.5 H Estim Creat Clear Calc Est GFR (MDRD) Af Amer 43 L Est GFR (MDRD) Non-Af 36 L BUN/Creatinine Ratio Glucose Calcium Phosphorus Albumin Vitamin B12 Urine Collection Time 24.0 24.0 Timed Urine Volume 4900 4900 Urine Creatinine 21.7 Creatinine Clearance 49 L Ur Total Protein 24 Hr 632.1 H Urine Total Protein 12.9 H POC Glucose 07/26/17 07/26/17 07/26/17 11:39 06:50 02:51 POC Glucose 142 H 148 H 122 H 07/26/17 07/25/17 07/25/17 00:06 22:27 22:16 POC Glucose 112 H 89 61 L 07/25/17 07/25/17 07/25/17 22:01 17:15 16:38 POC Glucose 53 L 76 46 L Assessment/Plan Active and Suspected Problems (Last Reviewed 05/03/17 @ 11:59 by Naun Thompson MD ) Anasarca (Acute) 1. CKD stage 3 due to diabetes, renal fxn at baseline. 2. Anasarca, fluid retention chronic due to pulmonary hypertension, PRESTON, aortic stenosis. Continue with lasix 80mg twice a day to three times a day on discharge back to [facility]. Edema at her baseline. 3. Iron def anemia. IV iron given. Continue oral iron on discharge. 4. DM2 stable 5. HTN stable 6. Super morbid obesity 7. PRESTON on BIPAP dw primary team
--- NOTE | 2017-07-26 13:09 | PCM.DC.SUM ---
<Derik Ford - Last Filed: 07/26/17 13:09> Discharge Date and Diagnosis - Problem List Patient Problems: Active and Suspected Problems (Last Reviewed 05/03/17 @ 11:59 by Naun Thompson MD) Anasarca (Acute) Date of Admission: 07/24/17 Date of Discharge: 07/26/17 - Primary Discharge Diagnosis Active and Suspected Problems (Last Reviewed 05/03/17 @ 11:59 by Naun Thompson MD) Anasarca (Acute) Diastolic CHF Pulmonary HTN Chronic hypoxic respiratory failure Moderate aortic stenosis T2DM HTN Lymphedema PRESTON Debility CKDIII Morbid obesity Iron deficiency anemia - Secondary Discharge Diagnosis Chronic Problems (Last Reviewed 05/03/17 @ 11:59 by Naun Thompson MD) CHF (congestive heart failure) (Chronic) Chronic respiratory failure with hypoxia (Chronic) Debility (Chronic) Aortic stenosis (Chronic) Left ventricular hypertrophy (Chronic) Pulmonary hypertension (Chronic) First degree AV block (Chronic) Asthma (Chronic) History of gastroesophageal reflux (GERD) (Chronic) Hyperlipidemia (Chronic) History of hypertension (Chronic) Diabetes mellitus, type 2 (Chronic) Morbid obesity (Chronic) Lymphedema of lower extremity (Chronic) Depression (Chronic) Anemia (Chronic) Hypertension (Chronic) Obstructive sleep apnea on CPAP (Chronic) Rheumatic fever (Chronic) Hiatal hernia (Chronic) Hospital Course and Treatment Imaging Results: RAD/Chest 1 View (Portable) IMPRESSION: Findings in keeping with mild degree of CHF with left basilar atelectasis. Echo: Interpretation Summary Moderate concentric left ventricular hypertrophy. The estimated ejection fraction is 70 %. Mild hypertrophy of the right ventricle. The left atrium is moderately enlarged. Trivial tricuspid valve insufficiency. Right ventricular systolic pressure estimated to be 23 mmHg. Moderate aortic stenosis. Compared to echo report dated 12/27/2014, LV function has remained the same, but aortic stenosis has gone from mild to moderate. Juan Jose- nephrology Operations: None Procedures: 2-D Echocardiogram Summary of Care Provided: Physical exam on day of discharge: General: Resting comfortably NAD Psych: A/Ox3 normal affect HEENT: PEARRLA AT NC Neck: Supple NT CV: Diminished, no crackles appreciated Resp: CTA Abd: [id number] Soft NT no guarding or rigidity, morbid obesity Ext: 1-2+ pitting edema bilateral lower extremities, puffy edema bilateral upper extremities Skin: W/D normal turgor Lymph/Heme: No active bleeding or adenopathy Neuro: CN2-12 intact Hospital course: The patient is a 72 year old F with a hx of anasarca, diastolic CHF, pulmonary hypertension, aortic stenosis, chronic hypoxic respiratory failure, obstructive sleep apnea, morbid obesity, chronic lymphedema, type 2 diabetes, CKD stage III, chronic anemia who presented to the hospital emergency room from long term as she was felt to have an increase in her chronic swelling most notably in her hands. Her Lasix regimen as an outpatient was adjusted however there is no noticeable improvement in swelling. She was admitted to the telemetry unit for anasarca. Her business systems consultant, Dr. Ingram, was consulted. The patient was placed on IV Lasix 80 twice daily. She does not have increased shortness of breath and remained stable on her chronic oxygen levels of 2 L/min. The patient was able to diurese significantly with intravenous Lasix with several liters removed during the stay. A repeat echocardiogram was obtained which demonstrated a preserved ejection fraction 70%, it did show her aortic stenosis increased from mild to moderate. She also had a 24-hour urine completed by nephrology while here. Nephrology felt that her renal function was stable and that she did not appear more volume overloaded than her typical presentation. The patient was transitioned back to her previous Lasix dosing and her prior medications were maintained. Her oral iron was changed to Ferrex. She continues to have iron deficiency anemia. She was compliant with CPAP while here. She will need to continue all of her prior care and return to long term and continue PT OT. The patient is discharged in stable condition. Given her above conditions recommend that she maintain close follow-up with nephrology, her commission sales associate Dr. Guthrie, and her manager customer service. This patient was seen by Derik Ford PA-C under the supervision of Doctor Levi. [] Discharge Diet: Low fat/ Low Cholesterol, 2000 mg Sodium Diet Discharge Activity: Return to Normal Activity Home Medications: Medications to take at Discharge Losartan Potassium [Cozaar] 50 mg PO DAILY 02/16/13 Atorvastatin Calcium [Lipitor] 40 mg PO QHS 02/17/13 Albuterol IH (ProAir) [Proair Hfa] 2 puff INHALATION Q6H PRN PRN 08/09/13 Montelukast [Singulair] 10 mg PO DAILY 08/09/13 Docusate Sodium [Colace] 100 mg PO QHS 05/06/14 Duloxetine HCl 30 mg PO QHS 06/11/16 Fexofenadine HCl 180 mg PO DAILY 06/11/16 Insulin Aspart [Novolog Flexpen] 30 units SC BREAKFAST 06/11/16 Insulin Aspart [Novolog Flexpen] 34 units SC DINNER 06/11/16 Insulin Aspart [Novolog Flexpen] 38 units SC LUNCH 06/11/16 Acetaminophen 650 mg PO Q4H PRN PRN 08/24/16 Aspirin [Aspirin, Baby] 81 mg PO DAILY 08/24/16 Esomeprazole Mag Trihydrate [Nexium] 20 mg PO BID 08/24/16 Lactobacillus Acidophilus [Acidophilus] 1 tab PO BID 08/24/16 cholecalciferol (vitamin D3) 2,000 unit capsule 2,000 unit PO DAILY cap 05/02/17 fluticasone 500 mcg-salmeterol 50 mcg/dose blistr powdr for inhalation 1 inh INHALATION Q12H 05/02/17 furosemide 80 mg tablet 80 mg PO BID tab 05/02/17 carvedilol 12.5 mg tablet 12.5 mg PO BID tab 05/03/17 ipratropium-albuterol 0.5 mg-3 mg(2.5 mg base)/3 mL nebulization soln 3 ml INHALATION Q8H 05/03/17 Albuterol Aerosols [Ventolin Aerosols] 2.5 mg INHALATION BID 07/24/17 Insulin Detemir [Levemir FlexPen] 75 units SC BID 07/24/17 Iron Polysaccharide Complex [Ferrex 150] 150 mg PO DAILYCM capsule 07/26/17 Lorazepam [Ativan] 1 mg PO BID PRN PRN #4 tab 07/26/17 Lorazepam [Ativan] 1 mg PO QHS #2 tab 07/26/17 Following Prescrptions Were Given to Patient: Lorazepam [Ativan] 1 mg PO BID PRN PRN #4 tab PRN Reason: Anxiety Lorazepam [Ativan] 1 mg PO QHS #2 tab Primary Care Physician: Antonio Peterson [Primary Care Provider] - Please follow up with your Primary Care Physician in: 2 weeks Please Follow Up With: Robyn Ingram DO When: 2 weeks Please Follow Up With: Kofi Guthrie MD When: 2 weeks Please Follow Up With: Naun Thompson MD When: 2 weeks Disposition: Snf facility Minutes spent on discharge:: 35 Patient Condition:: Stable Meaningful Use Info Meaningful Use Diagnoses (Choose all that apply): None applicable <Aroldo Sims - Last Filed: 07/26/17 14:06> Discharge Date and Diagnosis - Primary Discharge Diagnosis Active and Suspected Problems (Last Reviewed 05/03/17 @ 11:59 by Naun Thompson MD) Anasarca (Acute) - Secondary Discharge Diagnosis Chronic Problems (Last Reviewed 05/03/17 @ 11:59 by Naun Thompson MD) CHF (congestive heart failure) (Chronic) Chronic respiratory failure with hypoxia (Chronic) Debility (Chronic) Aortic stenosis (Chronic) Left ventricular hypertrophy (Chronic) Pulmonary hypertension (Chronic) First degree AV block (Chronic) Asthma (Chronic) History of gastroesophageal reflux (GERD) (Chronic) Hyperlipidemia (Chronic) History of hypertension (Chronic) Diabetes mellitus, type 2 (Chronic) Morbid obesity (Chronic) Lymphedema of lower extremity (Chronic) Depression (Chronic) Anemia (Chronic) Hypertension (Chronic) Obstructive sleep apnea on CPAP (Chronic) Rheumatic fever (Chronic) Hiatal hernia (Chronic) Hospital Course and Treatment Operations: None Procedures: 2-D Echocardiogram Summary of Care Provided: Pt seen and examined independently. I agree with above note by the PA. The patient is a 72 year old F presents with anasarca. Pt has known anasarca. Pt was put on IV lasix and weight went down to 151.4 kg, down from 155 (initial 164 likely an error). Pt still is volumed overloaded, but stable. Can be discharged with oral lasix 80 mg BID. Pt is otherwise doing well and back to her baseline. Discharge Diet: Low fat/ Low Cholesterol, 6 Cup Fluid Restriction, 2000 mg Sodium Diet Discharge Activity: Return to Normal Activity Disposition: Snf facility Minutes spent on discharge:: 35 Patient Condition:: Stable Meaningful Use Info Meaningful Use Diagnoses (Choose all that apply): None applicable Code Visit Inpatient E&M: 48140 Disch Hosp
--- NOTE | 2017-07-26 13:20 | DS.PCM_ITS ---
<Derik Ford - Last Filed: 07/26/17 13:09> Discharge Date and Diagnosis - Problem List Patient Problems: Active and Suspected Problems (Last Reviewed 05/03/17 @ 11:59 by Naun Thompson MD ) Anasarca (Acute) Date of Admission: 07/24/17 Date of Discharge: 07/26/17 - Primary Discharge Diagnosis Active and Suspected Problems (Last Reviewed 05/03/17 @ 11:59 by Naun Thompson MD ) Anasarca (Acute) Diastolic CHF Pulmonary HTN Chronic hypoxic respiratory failure Moderate aortic stenosis T2DM HTN Lymphedema PRESTON Debility CKDIII Morbid obesity Iron deficiency anemia - Secondary Discharge Diagnosis Chronic Problems (Last Reviewed 05/03/17 @ 11:59 by Naun Thompson MD) CHF (congestive heart failure) (Chronic) Chronic respiratory failure with hypoxia (Chronic) Debility (Chronic) Aortic stenosis (Chronic) Left ventricular hypertrophy (Chronic) Pulmonary hypertension (Chronic) First degree AV block (Chronic) Asthma (Chronic) History of gastroesophageal reflux (GERD) (Chronic) Hyperlipidemia (Chronic) History of hypertension (Chronic) Diabetes mellitus, type 2 (Chronic) Morbid obesity (Chronic) Lymphedema of lower extremity (Chronic) Depression (Chronic) Anemia (Chronic) Hypertension (Chronic) Obstructive sleep apnea on CPAP (Chronic) Rheumatic fever (Chronic) Hiatal hernia (Chronic) Hospital Course and Treatment Imaging Results: RAD/Chest 1 View (Portable) IMPRESSION: Findings in keeping with mild degree of CHF with left basilar atelectasis. Echo: Interpretation Summary Moderate concentric left ventricular hypertrophy. The estimated ejection fraction is 70 %. Mild hypertrophy of the right ventricle. The left atrium is moderately enlarged. Trivial tricuspid valve insufficiency. Right ventricular systolic pressure estimated to be 23 mmHg. Moderate aortic stenosis. Compared to echo report dated 12/27/2014, LV function has remained the same, but aortic stenosis has gone from mild to moderate. Juan Jose- nephrology Operations: None Procedures: 2-D Echocardiogram Summary of Care Provided: Physical exam on day of discharge: General: Resting comfortably NAD Psych: A/Ox3 normal affect HEENT: PEARRLA AT NC Neck: Supple NT CV: Diminished, no crackles appreciated Resp: CTA Abd: [id number] Soft NT no guarding or rigidity, morbid obesity Ext: 1-2+ pitting edema bilateral lower extremities, puffy edema bilateral upper extremities Skin: W/D normal turgor Lymph/Heme: No active bleeding or adenopathy Neuro: CN2-12 intact Hospital course: The patient is a 72 year old F with a hx of anasarca, diastolic CHF, pulmonary hypertension, aortic stenosis, chronic hypoxic respiratory failure, obstructive sleep apnea, morbid obesity, chronic lymphedema, type 2 diabetes, CKD stage III , chronic anemia who [facility] as she was felt to have an increase in her chronic swelling most notably in her hands. Her Lasix regimen as an outpatient was adjusted however there is no noticeable improvement in swelling. She was admitted to the telemetry unit for anasarca. Her night baker, Dr. Ingram, was consulted. The patient was placed on IV Lasix 80 twice daily. She does not have increased shortness of breath and remained stable on her chronic oxygen levels of 2 L/ min. The patient was able to diurese significantly with intravenous Lasix with several liters removed during the stay. A repeat echocardiogram was obtained which demonstrated a preserved ejection fraction 70%, it did show her aortic stenosis increased from mild to moderate. She also had a 24-hour urine completed by nephrology while here. Nephrology felt that her renal function was stable and that she did not appear more volume overloaded than her typical presentation. The patient was transitioned back to her previous Lasix dosing and her prior medications were maintained. Her oral iron was changed to Ferrex. She continues to have iron deficiency anemia. She was compliant with CPAP while here. She will need to continue all of her prior care and [facility] and continue PT OT. The patient is discharged in stable condition. Given her above conditions recommend that she maintain close follow- up with nephrology, her work station support specialist Dr. Guthrie, and her advertising operations manager. This patient was seen by Derik Ford PA-C under the supervision of Doctor Levi. [] Discharge Diet: Low fat/ Low Cholesterol, 2000 mg Sodium Diet Discharge Activity: Return to Normal Activity Home Medications: Medications to take at Discharge Losartan Potassium [Cozaar] 50 mg PO DAILY 02/16/13 Atorvastatin Calcium [Lipitor] 40 mg PO QHS 02/17/13 Albuterol IH (ProAir) [Proair Hfa] 2 puff INHALATION Q6H PRN PRN 08/09/13 Montelukast [Singulair] 10 mg PO DAILY 08/09/13 Docusate Sodium [Colace] 100 mg PO QHS 05/06/14 Duloxetine HCl 30 mg PO QHS 06/11/16 Fexofenadine HCl 180 mg PO DAILY 06/11/16 Insulin Aspart [Novolog Flexpen] 30 units SC BREAKFAST 06/11/16 Insulin Aspart [Novolog Flexpen] 34 units SC DINNER 06/11/16 Insulin Aspart [Novolog Flexpen] 38 units SC LUNCH 06/11/16 Acetaminophen 650 mg PO Q4H PRN PRN 08/24/16 Aspirin [Aspirin, Baby] 81 mg PO DAILY 08/24/16 Esomeprazole Mag Trihydrate [Nexium] 20 mg PO BID 08/24/16 Lactobacillus Acidophilus [Acidophilus] 1 tab PO BID 08/24/16 cholecalciferol (vitamin D3) 2,000 unit capsule 2,000 unit PO DAILY cap fluticasone 500 mcg-salmeterol 50 mcg/dose blistr powdr for inhalation 1 inh INHALATION Q12H 05/02/17 furosemide 80 mg tablet 80 mg PO BID tab 05/02/17 carvedilol 12.5 mg tablet 12.5 mg PO BID tab 05/03/17 ipratropium-albuterol 0.5 mg-3 mg(2.5 mg base)/3 mL nebulization soln 3 ml INHALATION Q8H 05/03/17 Albuterol Aerosols [Ventolin Aerosols] 2.5 mg INHALATION BID 07/24/17 Insulin Detemir [Levemir FlexPen] 75 units SC BID 07/24/17 Iron Polysaccharide Complex [Ferrex 150] 150 mg PO DAILYCM capsule 07/26/17 Lorazepam [Ativan] 1 mg PO BID PRN PRN #4 tab 07/26/17 Lorazepam [Ativan] 1 mg PO QHS #2 tab 07/26/17 Following Prescrptions Were Given to Patient: Lorazepam [Ativan] 1 mg PO BID PRN PRN #4 tab PRN Reason: Anxiety Lorazepam [Ativan] 1 mg PO QHS #2 tab Primary Care Physician: Antonio Peterson [Primary Care Provider] - Please follow up with your Primary Care Physician in: 2 weeks Please Follow Up With: Robyn Ingram DO When: 2 weeks Please Follow Up With: Kofi Guthrie MD When: 2 weeks Please Follow Up With: Naun Thompson MD When: 2 weeks Disposition: Group Home facility Minutes spent on discharge:: 35 Patient Condition:: Stable Meaningful Use Info Meaningful Use Diagnoses (Choose all that apply): None applicable <Aroldo Sims - Last Filed: 07/26/17 14:06> Discharge Date and Diagnosis - Primary Discharge Diagnosis Active and Suspected Problems (Last Reviewed 05/03/17 @ 11:59 by Naun Thompson MD ) Anasarca (Acute) - Secondary Discharge Diagnosis Chronic Problems (Last Reviewed 05/03/17 @ 11:59 by Naun Thompson MD) CHF (congestive heart failure) (Chronic) Chronic respiratory failure with hypoxia (Chronic) Debility (Chronic) Aortic stenosis (Chronic) Left ventricular hypertrophy (Chronic) Pulmonary hypertension (Chronic) First degree AV block (Chronic) Asthma (Chronic) History of gastroesophageal reflux (GERD) (Chronic) Hyperlipidemia (Chronic) History of hypertension (Chronic) Diabetes mellitus, type 2 (Chronic) Morbid obesity (Chronic) Lymphedema of lower extremity (Chronic) Depression (Chronic) Anemia (Chronic) Hypertension (Chronic) Obstructive sleep apnea on CPAP (Chronic) Rheumatic fever (Chronic) Hiatal hernia (Chronic) Hospital Course and Treatment Operations: None Procedures: 2-D Echocardiogram Summary of Care Provided: Pt seen and examined independently. I agree with above note by the PA. The patient is a 72 year old F presents with anasarca. Pt has known anasarca. Pt was put on IV lasix and weight went down to 151.4 kg, down from 155 (initial 164 likely an error). Pt still is volumed overloaded, but stable. Can be discharged with oral lasix 80 mg BID. Pt is otherwise doing well and back to her baseline. Discharge Diet: Low fat/ Low Cholesterol, 6 Cup Fluid Restriction, 2000 mg Sodium Diet Discharge Activity: Return to Normal Activity Disposition: Group Home facility Minutes spent on discharge:: 35 Patient Condition:: Stable Meaningful Use Info Meaningful Use Diagnoses (Choose all that apply): None applicable Code Visit Inpatient E&M: 98990 Disch Hosp
--- NOTE | 2017-07-26 13:20 | CASEMGMT ---
Social Work Pt ready for d/c on this date. Met with pt in room and informed her of d/c and return to [facility] [place]. She is agreeable to return and requests SW notify her daughter of d/c plans. Phone call to pt linda Cheema and informed of d/c plan. Transportation arranged with Brittany Peralta for a 2:45 orange picker machine operator. Phone call to [facility] [place] and informed of d/c and time. Nursing made aware. No further d/c needs. LEESA Dexter
--- NOTE | 2017-07-26 13:50 | NURSING ---
Report called to Bella at [facility].
== END 2017-07-26 14:47 | disposition skilled nursing facility (03) | DRG 948 ==
LOC: ED 13:58 → PCU 16:54
PROVIDERS: Internal Medicine Nephrology; Physician Assistant; Admitting Provider Internal Medicine; Emergency Provider Emergency Medicine; Family Provider Family Medicine; PCP Family Medicine
DX: R60.1 Generalized edema (principal); J96.11 Chronic respiratory failure with hypoxia; E11.22 Type 2 diabetes mellitus with diabetic chronic kidney disease; I27.20 Pulmonary hypertension, unspecified; I13.0 Hypertensive heart and chronic kidney disease with heart failure and stage 1 through stage 4 chronic kidney disease, or unspecified chronic kidney disease; E66.01 Morbid (severe) obesity due to excess calories; I50.30 Unspecified diastolic (congestive) heart failure; Z68.43 Body mass index [BMI] 50.0-59.9, adult; Z99.81 Dependence on supplemental oxygen; E78.5 Hyperlipidemia, unspecified; N18.3 Chronic kidney disease, stage 3 (moderate); I89.0 Lymphedema, not elsewhere classified; D50.9 Iron deficiency anemia, unspecified; G47.33 Obstructive sleep apnea (adult) (pediatric); R53.81 Other malaise; I35.0 Nonrheumatic aortic (valve) stenosis; Z87.891 Personal history of nicotine dependence; I44.0 Atrioventricular block, first degree; F32.9 Major depressive disorder, single episode, unspecified; J45.909 Unspecified asthma, uncomplicated
CPT/HCPCS: 36415; 71045; 80048; 80069; 82274; 82575; 82607; 82746; 82962; 83540; 83550; 83880; 84156; 85025; 85027; 93005; 93306; 94640; 97802; 99285; J1756; Q9957; A4216; J1940